=== PATIENT | female | born 1950 | race Caucasian/White ===

== ENCOUNTER → 2023-11-13 14:31 | Outpatient (REF) | payer MEDICARE, OTHER, SELFPAY | LOC: HWRAD 14:31 | PROVIDERS: ATTENDING PHYSICIAN Physician Assistant; FAMILY PHYSICIAN Family Medicine | DX: E83.52 Hypercalcemia (principal); E34.9 Endocrine disorder, unspecified | CPT/HCPCS: 76536 ==

== ENCOUNTER → 2023-11-17 08:43 | Outpatient (REF) | payer MEDICARE, OTHER, SELFPAY | LOC: RAD 08:43 | PROVIDERS: ATTENDING PHYSICIAN Physician Assistant; FAMILY PHYSICIAN Family Medicine | DX: E83.52 Hypercalcemia (principal); E34.9 Endocrine disorder, unspecified | CPT/HCPCS: 78071; A9500 ==

== ENCOUNTER 2024-01-02 06:20 | Day surgery (SDC) | payer MEDICARE, OTHER, SELFPAY ==
[2023-12-27 10:56] VITALS: BMI 25.5
[2024-01-02] VITALS (8 sets, daily range): BP systolic 132–152; BP diastolic 67–80; BMI 25.5
[2024-01-02] MEDS: TYLENOL 1000 MG PO (11:55)
[2024-01-02] MEDS: NEURONTIN 300 MG PO (11:55)
[2024-01-02] MEDS: HEPARIN 5000 UNITS SC (11:56)
[2024-01-02 13:03] LABS: Turbo PTH 142.5 pg/ml (13.6-85.8)
--- NOTE | 2024-01-02 13:28 | OR.RPT ---
Operative Report
Operative Report
Date of Operation: January 02, 2024
Preoperative Diagnosis: �Hyperparathyroidism - E210
Postoperative Diagnosis: Same
Surgeon: Syd Bowling M.D.
Operation: Minimally Invasive Left Inferior Parathyroidectomy - 85998
Anesthesia: GET
Estimated Blood Loss: 3 cc
Drains: None
Specimen: �Left lower neck nodule, rule out parathyroid adenoma
Complications: �None
Procedure:
The patient was taken to the operating room and placed in the usual supine position. After adequate general endotracheal anesthesia was established, the patient's neck was extended, prepped, and draped in the typical sterile fashion. A 4 cm
transcervical incision was made two fingerbreadths above the sternal notch. The skin incision was made with the #15 blade, and this was taken through the skin into the subcutaneous tissue. The underlying platysma muscle was divided, and subplatysmal
flaps were created superiorly to the thyroid cartilage and inferiorly to the sternal notch. Strap muscles were identified and at the midline.
The attention was turned to the left side of the neck. The left thyroid lobe was mobilized medially. During this process, the left recurrent laryngeal nerve was identified and preserved throughout the surgery. The left lower neck nodule was
identified and noted to be enlarged, excised, and sent to the pathology department, which showed a hypercellular parathyroid gland. The intraoperative PTH levels normalized.
After obtaining adequate hemostasis, the strap muscles were reapproximated with #3-0 Vicryl in a running fashion. The platysma muscle was reapproximated with #3-0 Vicryl in an interrupted fashion, and the skin was approximated with #4-0 Monocryl in
a running subcuticular fashion. The Steri-Strips and sterile dressings were placed. The patient tolerated the procedure well. The final instrument, needle, and sponge counts were correct. The patient was extubated and transferred to the PACU.
[2024-01-02 13:41] LABS: Turbo PTH 74.4 pg/ml (13.6-85.8)
== END 2024-01-02 15:57 | disposition home or self-care (01) ==
LOC: SDS 06:20
PROVIDERS: ATTENDING PHYSICIAN Surgery; FAMILY PHYSICIAN Family Medicine
DX: E21.0 Primary hyperparathyroidism (principal)
CPT/HCPCS: 60500; 88305; 88332; 83970; 88331; C1776